=== PATIENT | female | born 1950 | race Caucasian/White ===

== ENCOUNTER → 2019-10-23 | Outpatient (CLI) | payer BC ==
[~2019-10-23] MED LIST: ASPI81TA45 PO; LEVO112T4 PO
[2019-10-23 09:33] LABS: BASOPHILS # (AUTO) 0.03 x10^3/uL (0-0.1); BASOPHILS % (AUTO) 0 % (0-1); EOSINOPHILS # (AUTO) 0.37 x10^3/uL (0-0.4); EOSINOPHILS % (AUTO) 5 % (1-7); LYMPHOCYTES # (AUTO) 1.67 x10^3/uL (1-3.4); LYMPHOCYTES % (AUTO) 25 % (22-44); MD NO; MEAN CORPUSCULAR HEMOGLOBIN 29.8 pg (27.0-34.8); MEAN CORPUSCULAR HGB CONC 32.9 g/dL (32.4-35.8); MEAN CORPUSCULAR VOLUME 90.6 fL (80-100); MEAN PLATELET VOLUME 9.1 fL (7.4-10.4); MONOCYTES # (AUTO) 0.51 x10^3/uL (0.2-0.8); MONOCYTES % (AUTO) 8 % (2-9); NEUTROPHILS # (AUTO) 4.24 x10^3/uL (1.8-6.8); NEUTROPHILS % (AUTO) 62 % (42-75); PLATELET COUNT 206 x10^3/uL (130-400); RED BLOOD COUNT 4.99 x10^6/uL (3.82-5.3); RED CELL DISTRIBUTION WIDTH 13.4 % (9.6-15.2)
[2019-10-23 09:43] LABS: INTERNATIONAL NORMALIZED RATIO 0.94 (0.93-1.1)
[2019-10-23 09:47] LABS: ANION GAP 5 mmol/L (5-15); CHLORIDE 109 mmol/L (98-107); CREATININE 1.05 mg/dL (0.55-1.02)
== END | disposition home or self-care (01) ==
LOC: STAR 08:04
PROVIDERS: ATTEND Orthopaedic Surgery
DX: Z01.818 Encounter for other preprocedural examination (principal); M17.12 Unilateral primary osteoarthritis, left knee
CPT/HCPCS: 36415; 80048; 83036; 85025; 85610; 85730; 87081; 87147; 87806; 93005; G0475

== ENCOUNTER 2019-10-27 11:08 | Observation (INO) | payer BC ==
[~2019-10-27] VITALS: Ht 166.4 cm; Wt 118.6 kg
[~2019-10-27 11:08] MED LIST changes: -ASPI81TA45 PO
[2019-10-27] MEDS ORDERED: EPINEPHRINE 1 MG/ML, 1ML ONE (11:23)
[2019-10-27] MEDS ORDERED: KETOROLAC 60 MG/2 ML ONE (11:23)
[2019-10-27] MEDS ORDERED: SODIUM CHLORIDE 0.9% 50 ML ONE ×2 (11:23→13:42)
[2019-10-27] MEDS ORDERED: ROPIvacaine/PF 0.2%, 20 ML ONE (11:23)
[2019-10-27] MEDS ORDERED: TRANEXAMIC ACID 100 MG/ML, 10ML ONE (11:23)
[2019-10-27] MEDS ORDERED: LACTATED RINGERS 1,000 ML IV SCH (11:33)
[2019-10-27] MEDS ORDERED: CHLORHEXIDINE 15 ML UDC MM STA (11:33)
[2019-10-27] MEDS ORDERED: FENTANYL PF 250 MCG/5ML ONE (12:42)
[2019-10-27] MEDS ORDERED: MIDAZOLAM 1 MG/ML, 2ML ONE (12:42)
[2019-10-27] MEDS ORDERED: ONDANSETRON 2MG/ML, 2ML IVPush PRN ×2 (14:00→16:00)
[2019-10-27] MEDS ORDERED: ONDANSETRON 4 MG TABLET PO PRN (14:00)
[2019-10-27] MEDS ORDERED: ALUMINUM/MAG/SIMETHICONE 30 ML UDC PO PRN (14:00)
[2019-10-27] MEDS ORDERED: DIPHENHYDRAMINE 50 MG/ML, 1ML IVPush PRN (14:00)
[2019-10-27] MEDS ORDERED: SENNA/DOCUSATE TABLET PO PRN (14:00)
[2019-10-27] MEDS ORDERED: DIPHENHYDRAMINE 25 MG CAPSULE PO PRN (14:00)
[2019-10-27] MEDS ORDERED: MAGNESIUM HYDROXIDE 8%, 30ML UDC PO PRN (14:00)
[2019-10-27] MEDS ORDERED: METOCLOPRAMIDE 5 MG/ML, 2ML IVPush PRN (14:00)
[2019-10-27] MEDS ORDERED: ACETAMINOPHEN 650 MG/20.3 ML UDC PO PRN (14:00)
[2019-10-27] MEDS ORDERED: PSYLLIUM PACKET PO PRN (14:00)
[2019-10-27] MEDS ORDERED: HYDROmorphone 1 MG/ML, 1ML INJ IVPush PRN (14:00)
[2019-10-27] MEDS ORDERED: ROCURONIUM 10MG/ML,5ML ONE (14:02)
[2019-10-27] MEDS ORDERED: ONDANSETRON 2MG/ML, 2ML ONE (14:02)
[2019-10-27] MEDS ORDERED: hydrALAzine 20 MG/ML, 1ML ONE ×2 (14:02→16:03)
[2019-10-27] MEDS ORDERED: DEXAMETHASONE 4 MG/ML, 1ML ONE (14:02)
[2019-10-27] MEDS ORDERED: PROPOFOL 10 MG/ML, 20ML ONE (14:02)
[2019-10-27] MEDS ORDERED: SUCCINYLCHOLINE 20 MG/ML, 10ML ONE (14:02)
[2019-10-27] MEDS ORDERED: CEFAZOLIN 1,000 MG ONE (14:02)
[2019-10-27] MEDS ORDERED: TRANEXAMIC ACID 1,000 MG in SODIUM CHLORIDE 0.9% 100 ML IVPB ONE (15:33)
[2019-10-27] MEDS ORDERED: OXYcodone 5 MG/5 ML ORAL.SOL UDC ONE (15:39)
[2019-10-27] MEDS ORDERED: FENTANYL PF 100 MCG/2ML ONE ×2 (15:39→16:14)
[2019-10-27] MEDS: FENTANYL PF 100 MCG/2ML IV PRN ×4 (15:40→16:15)
[2019-10-27] MEDS ORDERED: DIAZEPAM 5 MG/ML, 2ML ONE (15:44)
[2019-10-27] MEDS ORDERED: METOCLOPRAMIDE 5 MG/ML, 2ML ONE (15:44)
[2019-10-27] MEDS ORDERED: LABETALOL 5MG/ML, 20ML ONE (15:47)
[2019-10-27] MEDS: LABETALOL 5MG/ML, 20ML IV PRN ×2 (15:48→16:00)
[2019-10-27] MEDS ORDERED: DIAZEPAM 5 MG/ML, 2ML IV PRN ×2 (16:00)
[2019-10-27] MEDS ORDERED: HYDROmorphone 1 MG/ML, 1ML INJ IV PRN (16:00)
[2019-10-27] MEDS ORDERED: ALBUTEROL SULFATE 2.5 MG/3 ML NPPB PRN (16:00)
[2019-10-27] MEDS ORDERED: PROMETHAZINE 25 MG/ML, 1ML IV PRN (16:00)
[2019-10-27] MEDS ORDERED: MEPERIDINE/PF 25MG/0.5ML IVPush PRN (16:00)
[2019-10-27] MEDS ORDERED: KETOROLAC 30 MG/1 ML IV PRN (16:00)
[2019-10-27] MEDS ORDERED: OXYcodone 5 MG/5 ML ORAL.SOL UDC PO PRN (16:00)
[2019-10-27] MEDS ORDERED: METOCLOPRAMIDE 5 MG/ML, 2ML IV PRN (16:00)
[2019-10-27] MEDS ORDERED: hydrALAzine 20 MG/ML, 1ML IV PRN (16:00)
[2019-10-27] MEDS ORDERED: PROMETHAZINE 25 MG/ML, 1ML ONE (16:17)
[2019-10-27] MEDS: KETOROLAC 30 MG/1 ML IV SCH (18:58)
[2019-10-27 20:01] VITALS: BP 132/61
[2019-10-27] MEDS: ASPIRIN 81 MG TABLET EC PO SCH (20:55)
[2019-10-27] MEDS: DOCUSATE 100 MG CAPSULE PO SCH (20:55)
[2019-10-27] MEDS: OXYcodone IR 5MG TABLET PO PRN ×2 (21:59→22:51)
[2019-10-27] MEDS: POTASSIUM CHLORIDE 20 MEQ in D5%-0.45% NACL 1,000 ML IV SCH (22:53)
[2019-10-27] MEDS: CEFAZOLIN PMX 1GM/50ML 50 ML IVPB SCH (22:56)
[2019-10-27 23:43] VITALS: BP 125/71
[2019-10-28] MEDS: KETOROLAC 30 MG/1 ML IV SCH ×2 (03:09→11:55)
[2019-10-28] MEDS: OXYcodone IR 5MG TABLET PO PRN ×5 (03:10→23:41)
[2019-10-28 03:59] VITALS: BP 112/66
[2019-10-28] MEDS: ASPIRIN 81 MG TABLET EC PO SCH ×2 (05:36→17:42)
[2019-10-28] MEDS: LEVOTHYROXINE 112 MCG TABLET PO SCH (05:37)
[2019-10-28] MEDS ORDERED: DEXAMETHASONE 4 MG/ML, 1ML IVPush ONE (06:00)
[2019-10-28] MEDS: CEFAZOLIN PMX 1GM/50ML 50 ML IVPB SCH (06:50)
[2019-10-28 07:18] VITALS: BP 130/62
[2019-10-28] MEDS: DOCUSATE 100 MG CAPSULE PO SCH ×2 (08:12→19:38)
[2019-10-28] MEDS: TAMSULOSIN 0.4 MG CAP.ER.24H PO SCH (08:14)
[2019-10-28] MEDS: POTASSIUM CHLORIDE 20 MEQ in D5%-0.45% NACL 1,000 ML IV SCH ×2 (08:14→19:12)
[2019-10-28] MEDS ORDERED: ASPI81TA45 PO (10:03)
[2019-10-28] MEDS ORDERED: KETOROLAC 30 MG/1 ML ONE (11:52)
[2019-10-28 12:43] VITALS: BP 152/64
[2019-10-28 19:36] VITALS: BP 115/62
[2019-10-29] MEDS: POTASSIUM CHLORIDE 20 MEQ in D5%-0.45% NACL 1,000 ML IV SCH ×2 (02:40→07:22)
[2019-10-29 02:47] VITALS: BP 137/67
[2019-10-29] MEDS: OXYcodone IR 5MG TABLET PO PRN ×3 (03:56→11:49)
[2019-10-29] MEDS: LEVOTHYROXINE 112 MCG TABLET PO SCH (06:05)
[2019-10-29] MEDS: ASPIRIN 81 MG TABLET EC PO SCH (06:05)
[2019-10-29] MEDS: TAMSULOSIN 0.4 MG CAP.ER.24H PO SCH (07:22)
[2019-10-29 07:25] VITALS: BP 122/59
[2019-10-29] MEDS: DOCUSATE 100 MG CAPSULE PO SCH (07:45)
[2019-10-29 13:11] VITALS: BP 149/65
== END 2019-10-29 14:30 | disposition home or self-care (01) ==
LOC: OUT 11:08 → ORIP 13:36 → 4NE 17:18
PROVIDERS: ADMIT Orthopaedic Surgery; ATTEND Orthopaedic Surgery
DX: Z03.818 Encounter for observation for suspected exposure to other biological agents ruled out (principal); M17.0 Bilateral primary osteoarthritis of knee; Z91.040 Latex allergy status; Z79.899 Other long term (current) drug therapy
CPT/HCPCS: 27447; 36415; 73560; 85014; 85018; 87635; 96365; 96366; 96375; 96376; 97110; 97116; 97161; 97165; 97530; C1713; C1776; G0378; J0171; J0330; J0360; J0690; J1100; J1885; J2250; J2405; J2704; J2765; J2795; J3010; J3480; J7120

== ENCOUNTER → 2020-03-12 | Outpatient (CLI) | payer BC ==
[~2020-03-12] MED LIST changes: +ASPI81TA45 PO
[2020-03-12 16:42] LABS: BASOPHILS % (AUTO) 0 % (0-1); EOSINOPHILS % (AUTO) 3 % (1-7); LYMPHOCYTES % (AUTO) 28 % (22-44); MEAN CORPUSCULAR HEMOGLOBIN 28.3 pg (27.0-34.8); MEAN CORPUSCULAR HGB CONC 32.8 g/dL (32.4-35.8); MEAN PLATELET VOLUME 9.7 fL (7.4-10.4); MONOCYTES % (AUTO) 10 % (2-9); NEUTROPHILS % (AUTO) 58 % (42-75); PLATELET COUNT 223 x10^3/uL (130-400); RED BLOOD COUNT 5.49 x10^6/uL (3.82-5.3); RED CELL DISTRIBUTION WIDTH 14.8 % (9.6-15.2)
[2020-03-12 16:48] LABS: INTERNATIONAL NORMALIZED RATIO 0.97 (0.93-1.1); PROTHROMBIN TIME 10.3 Seconds (9.6-11.5)
[2020-03-12 16:50] LABS: ANION GAP 3 mmol/L (5-15); CHLORIDE 108 mmol/L (98-107); CREATININE 0.96 mg/dL (0.55-1.02)
[2020-03-12 16:52] LABS: MD NO
== END | disposition home or self-care (01) ==
LOC: STAR 15:05
PROVIDERS: ATTEND Orthopaedic Surgery
DX: Z01.818 Encounter for other preprocedural examination (principal); M17.11 Unilateral primary osteoarthritis, right knee; Z79.01 Long term (current) use of anticoagulants
CPT/HCPCS: 36415; 80048; 83036; 85025; 85610; 85730; 87081; 87147; 87806; 93005; G0475

== ENCOUNTER → 2020-03-18 | Outpatient (CLI) | payer BC, MEDICARE | END | disposition home or self-care (01) | LOC: CLISVCS 13:05 | PROVIDERS: ATTEND Anesthesiology | DX: Z20.828 Contact with and (suspected) exposure to other viral communicable diseases (principal) | CPT/HCPCS: 87635 ==

== ENCOUNTER 2020-03-22 08:59 | Observation (INO) | payer BC, MEDICARE ==
[~2020-03-22] VITALS: Ht 165.1 cm; Wt 117.3 kg
[~2020-03-22 08:59] MED LIST changes: +EPHEDRINE 50 MG/ML, 1ML IVPush PRN; +LABETALOL 5MG/ML, 20ML IV PRN; +MEPERIDINE/PF 25MG/0.5ML IVPush PRN; +ONDANSETRON 2MG/ML, 2ML IVPush PRN; +OXYcodone 5 MG/5 ML ORAL.SOL UDC PO PRN; +PROMETHAZINE 25 MG/ML, 1ML IVPush PRN; +hydrALAzine 20 MG/ML, 1ML IV PRN
[2020-03-22] MEDS ORDERED: GABAPENTIN 300 MG CAPSULE PO ONE (09:30)
[2020-03-22] MEDS ORDERED: CHLORHEXIDINE 15 ML UDC MM ONE (09:30)
[2020-03-22] MEDS ORDERED: ACETAMINOPHEN 500 MG TABLET PO ONE (09:30)
[2020-03-22 09:42] VITALS: BP 167/92
[2020-03-22] MEDS ORDERED: LACTATED RINGERS 1,000 ML IV SCH (10:00)
[2020-03-22] MEDS ORDERED: KETOROLAC 60 MG/2 ML ONE (10:24)
[2020-03-22] MEDS ORDERED: TRANEXAMIC ACID 100 MG/ML, 10ML ONE (10:24)
[2020-03-22] MEDS ORDERED: ROPIvacaine/PF 0.2%, 20 ML ONE (10:24)
[2020-03-22] MEDS ORDERED: MIDAZOLAM 1 MG/ML, 2ML ONE (10:24)
[2020-03-22] MEDS ORDERED: FENTANYL PF 250 MCG/5ML ONE (10:24)
[2020-03-22] MEDS ORDERED: EPINEPHRINE 1 MG/ML, 1ML ONE (10:25)
[2020-03-22] MEDS ORDERED: SODIUM CHLORIDE 0.9% 50 ML ONE (10:25)
[2020-03-22] MEDS ORDERED: PROPOFOL 50 ML ONE (10:44)
[2020-03-22] MEDS ORDERED: EPHEDRINE 50 MG/ML, 1ML ONE (10:52)
[2020-03-22] MEDS ORDERED: GLYCOPYRROLATE 0.2MG/1ML, 5ML ONE (10:52)
[2020-03-22] MEDS ORDERED: PSYLLIUM PACKET PO PRN (11:00)
[2020-03-22] MEDS ORDERED: POLYETHYLENE GLYCOL 17 GM PACKET PO PRN (11:00)
[2020-03-22] MEDS ORDERED: ONDANSETRON 4 MG TABLET PO PRN (11:00)
[2020-03-22] MEDS ORDERED: SENNA/DOCUSATE TABLET PO PRN (11:00)
[2020-03-22] MEDS ORDERED: HYDROmorphone 1 MG/ML, 1ML INJ IVPush PRN (11:00)
[2020-03-22] MEDS ORDERED: TRANEXAMIC ACID 1,000 MG in SODIUM CHLORIDE 0.9% 100 ML IVPB ONE (11:00)
[2020-03-22] MEDS ORDERED: ONDANSETRON 2MG/ML, 2ML IV PRN (11:00)
[2020-03-22] MEDS ORDERED: ALUMINUM/MAG/SIMETHICONE 30 ML UDC PO PRN (11:00)
[2020-03-22] MEDS ORDERED: DEXAMETHASONE 4 MG/ML, 1ML IVPush SCH (11:00)
[2020-03-22] MEDS ORDERED: DIPHENHYDRAMINE 50 MG CAPSULE PO PRN (11:00)
[2020-03-22] MEDS ORDERED: DIPHENHYDRAMINE 50 MG/ML, 1ML IVPush PRN (11:00)
[2020-03-22] MEDS ORDERED: MAGNESIUM HYDROXIDE 8%, 30ML UDC PO PRN (11:00)
[2020-03-22] MEDS ORDERED: CEFAZOLIN 1,000 MG ONE (11:16)
[2020-03-22] MEDS ORDERED: DEXAMETHASONE 4 MG/ML, 1ML ONE (11:16)
[2020-03-22] MEDS ORDERED: ONDANSETRON 2MG/ML, 2ML ONE (11:16)
[2020-03-22] MEDS ORDERED: PROPOFOL 10 MG/ML, 20ML ONE ×2 (11:16→11:54)
[2020-03-22] MEDS ORDERED: SODIUM CHLORIDE 0.9% PF 10ML ONE (11:18)
[2020-03-22] MEDS ORDERED: BUPIVACAINE/PF 0.5% ONE (11:36)
[2020-03-22] MEDS ORDERED: FENTANYL PF 100 MCG/2ML ONE ×2 (11:54→12:29)
[2020-03-22] MEDS ORDERED: OXYcodone 5 MG/5 ML ORAL.SOL UDC ONE (12:30)
[2020-03-22] MEDS: FENTANYL PF 100 MCG/2ML IV PRN ×2 (12:34→12:40)
[2020-03-22] MEDS ORDERED: HYDROmorphone 2 MG/ML, 1ML ONE (12:40)
[2020-03-22] MEDS: HYDROmorphone 1 MG/ML, 1ML INJ IVPush PRN ×4 (12:45→13:17)
[2020-03-22 13:40] VITALS: BP 158/75
[2020-03-22 14:00] VITALS: BP 154/71
[2020-03-22] MEDS: POTASSIUM CHLORIDE 20 MEQ in D5%-0.45% NACL 1,000 ML IV SCH ×2 (15:18→21:06)
[2020-03-22] MEDS: OXYcodone IR 5MG TABLET PO PRN ×3 (15:18→23:30)
[2020-03-22] MEDS: ASPIRIN 81 MG TABLET EC PO SCH (19:54)
[2020-03-22] MEDS: KETOROLAC 30 MG/1 ML IV SCH (19:55)
[2020-03-22] MEDS: DOCUSATE 100 MG CAPSULE PO SCH (19:55)
[2020-03-22] MEDS: CEFAZOLIN PMX 1GM/50ML 50 ML IVPB SCH (19:55)
[2020-03-22 20:01] VITALS: BP 141/73
[2020-03-22] MEDS ORDERED: ACETAMINOPHEN 325 MG TABLET ONE (23:27)
[2020-03-22] MEDS: ACETAMINOPHEN 650 MG/20.3 ML UDC PO PRN (23:29)
[2020-03-23 00:17] VITALS: BP 128/64
[2020-03-23] MEDS ORDERED: ACETAMINOPHEN 325 MG TABLET ONE (03:39)
[2020-03-23] MEDS: KETOROLAC 30 MG/1 ML IV SCH (03:44)
[2020-03-23] MEDS: OXYcodone IR 5MG TABLET PO PRN ×2 (03:44→08:18)
[2020-03-23] MEDS: ACETAMINOPHEN 650 MG/20.3 ML UDC PO PRN (03:44)
[2020-03-23 03:50] VITALS: BP 123/64
[2020-03-23] MEDS: CEFAZOLIN PMX 1GM/50ML 50 ML IVPB SCH (04:16)
[2020-03-23] MEDS: POTASSIUM CHLORIDE 20 MEQ in D5%-0.45% NACL 1,000 ML IV SCH (05:34)
[2020-03-23] MEDS ORDERED: LEVOTHYROXINE 112 MCG TABLET PO SCH (06:00)
[2020-03-23 08:13] VITALS: BP 129/80
[2020-03-23] MEDS: DOCUSATE 100 MG CAPSULE PO SCH (08:17)
[2020-03-23] MEDS: ASPIRIN 81 MG TABLET EC PO SCH (08:17)
[2020-03-23] MEDS ORDERED: TAMSULOSIN 0.4 MG CAP.ER.24H PO SCH (09:00)
[2020-03-23 11:17] VITALS: BP 122/60
== END 2020-03-23 11:37 | disposition home or self-care (01) ==
LOC: OUT 08:59 → 2NW 10:55 → OUT 14:30 → DCLOUNGE 03-23 11:28
PROVIDERS: ADMIT Orthopaedic Surgery; ATTEND Orthopaedic Surgery
DX: M17.11 Unilateral primary osteoarthritis, right knee (principal); M71.21 Synovial cyst of popliteal space [Baker], right knee; J45.909 Unspecified asthma, uncomplicated; M79.7 Fibromyalgia; E03.9 Hypothyroidism, unspecified; Z91.040 Latex allergy status; Z79.899 Other long term (current) drug therapy
CPT/HCPCS: 27447; 36415; 73560; 85014; 85018; 96361; 96365; 96366; 96375; 96376; 97110; 97161; C1713; C1776; G0378; J0171; J0690; J1100; J1170; J1885; J2250; J2405; J2704; J2795; J3010; J3480; J7120; S0020